=== PATIENT | female | born 1935 | race Caucasian/White ===

== ENCOUNTER 2018-04-19 13:12 | Emergency (ER) | payer MEDICARE, OTHER ==
[~2018-04-19] VITALS: Ht 152.4 cm; Wt 51.7 kg
--- OUTSIDE RECORDS SUMMARY | 2018-04-19 13:15 | XMS REPORT | Clinical Summary ---
Author Author [facility] Organization [facility] Address Unknown Phone Unavailable Care Team Providers Care Associate Spa Director Name Role Phone Natanael Lozano MD PCP Allergies No Known Allergies Medications End Date Status Medication Sig Dispensed Refills Start Date Active ADVAIR DISKUS 250-50 0 mcg/dose DISKUS 7 Active lisinopril Take 10 mg by 0 (PRINIVIL,ZESTRIL) 10 mg mouth. 6 tablet Active gabapentin (NEURONTIN) 0 300 mg capsule 7 Active zolpidem (AMBIEN) 5 MG Take 5 mg by 0 tablet mouth. 7 Active carvedilol (COREG) 12.5 Take 12.5 mg 0 MG tablet by mouth. 7 Active clopidogrel (PLAVIX) 75 TAKE ONE 0 mg tablet TABLET BY 7 MOUTH DAILY Active aspirin (ECOTRIN) 81 MG Take 1 tablet 0 enteric coated tablet by mouth. Active pravastatin (PRAVACHOL) 0 80 MG tablet 7 Active cholecalciferol, vitamin Take 1,000 0 D3, (VITAMIN D3) 1,000 Units by unit tablet mouth. Active calcium carbonate Take 600 mg 0 (OS-NENA) 600 mg calcium by mouth. (1,500 mg) tablet Active albuterol (PROAIR 0 HFA,PROVENTIL HFA,VENTOLIN HFA) 90 mcg/actuation inhaler Active lidocaine (XYLOCAINE) 5 % 0 ointment 7 Active ONETOUCH ULTRA TEST strip TEST BLOOD 2 test strips SUGAR QD 7 Active BECLOMETHASONE Inhale 2 0 DIPROPIONATE (QVAR INHL) (two) times a day. Active sitaGLIPtin-metformin Take by mouth 0 (JANUMET XR) 100-1,000 mg daily. tablet, ER multiphase 24 hr Active PSYLLIUM SEED, WITH Take by mouth 0 DEXTROSE, (FIBER ORAL) 2 (two) times a day. Active multivitamin with Take 1 tablet 0 minerals tablet by mouth daily. Active Lactobacillus acidophilus Take by mouth 0 (ACIDOPHILUS) capsule daily. Active Problems Problem Noted Date CLL (chronic lymphocytic leukemia) 11/11/2016 Social History Date Tobacco Use Types Packs/Day Years Used Former Smoker Alcohol Use Drinks/Week oz/Week Comments No Sex Assigned at Date Recorded Not on file Industry Job Start Date Occupation Not on file Not on file Not on file Travel End Travel History Travel Start No recent travel history available. Last Filed Vital Signs Not on file Plan of Treatment Health Maintenance Due Date Last Done Comments SHINGRIX VACCINE (1 of 2) 1986 ZOSTER VACCINE 1996 PNEUMOCOCCAL 2001 POLYSACCHARIDE VACCINE AGE 65 AND OVER PNEUMOCOCCAL-13 2001 INFLUENZA VACCINE 12/07/2017 12/22/2015 Results Not on fileafter 04/18/2017 Insurance Payer Benefit Subscriber ID Type Phone Address Plan / Group AETNA MEDICARE AETNA xxxxxxxx O MEDICARE HMO/PPO [id number] Advance Directives Patient has advance care planning documents on file. For more information, kendrick elliott contact: Petey Swanson [address] [place] [address]
--- OUTSIDE RECORDS SUMMARY | 2018-04-19 13:15 | XMS REPORT | Clinical Summary ---
Author Author [facility] [employer] [facility] Address Unknown Phone Unavailable Care Team Providers Care Associate Manager Affiliate Marketing Name Role Phone Natanael Lozano MD PCP Raghu Jackson 31 Unavailable Allergies No Known Allergies Medications End Date Status Medication Sig Dispensed Refills Start Date Active fluticasone-salmeterol Inhale 1 puff 0 (ADVAIR) 250-50 mcg/dose by mouth via diskus inhaler inhaler every 12 (twelve) hours. Active prasugrel (EFFIENT) 10 mg Take 1 tablet 30 tablet 0 Tab tablet (10 mg total) 6 by mouth daily. Active cholecalciferol (VITAMIN Take 1,000 0 D3) 1,000 unit tablet Units by mouth daily. Active calcium carbonate Take 600 mg 0 (OS-NENA) 600 mg (1,500 by mouth mg) Tab daily. Active multivitamin per tablet Take 1 tablet 0 by mouth daily. Active Problems Problem Noted Date PVD (peripheral vascular disease) with claudication 03/08/2016 S/P femoral-popliteal bypass surgery 03/08/2016 PVD (peripheral vascular disease) 03/26/2014 CLL (chronic lymphocytic leukemia) 03/26/2014 CKD (chronic kidney disease), stage 3 (moderate) 03/26/2014 Hypothyroid 03/26/2014 GERD (gastroesophageal reflux disease) 03/26/2014 Hypertension 03/26/2014 CAD (coronary artery disease) 03/26/2014 Social History Date Tobacco Use Types Packs/Day [...] Health Maintenance Due Date Last Done Comments INFLUENZA VACCINE 02/06/2018 Implants Device Identifier Shelf Expiration Date Model / Serial / Lot Implanted Type Area Manufactur er 03/26/2019 [id number] / [id number] / Grft Eptfe-Heparin Rng [id number] Graft/Patc Right: Leg WL GORE & [id number] - [id number] ASSC:MED Implanted: Qty: 1 on 03/08/2016 by Nicolasa Godfrey MD Explanted: 03/08/2016 [id number] / / [id number] Supera Peripheral Stent WESLEY Implanted: Qty: 1 on 05/27/2015 VASCULAR DEVICE 02/05/2017 [id number] / / [id number] Supera Peripheral Stent WESLEY Implanted: Qty: 1 on 05/27/2015 VASCULAR DEVICE Results Not on fileafter 04/18/2017 Insurance Payer Benefit Subscriber ID Type Phone Address Plan / Group AETNA - MEDICARE MGD CARE AETNA xxxxxxxx [phone] [address] [place] [address] HMO POS PPO Advance Directives Patient has advance care planning documents, and code status on file. For more i nformation, please contact: [facility] [address] [place] [address] Date Inactivated Comments Code Status Date Activated 03/16/2016 12:32 PM Full Code 03/12/2016 5:17 PM This code status was determined by: Patient 03/12/2016 5:17 PM Full Code 03/08/2016 6:52 AM This code status was determined by: Patient 02/27/2016 8:24 PM Full Code 02/27/2016 1:53 PM This code status was determined by: Patient 02/27/2016 1:53 PM Full Code 02/27/2016 9:02 AM This code status was determined by: Patient 05/28/2015 1:18 PM Full Code 05/27/2015 4:02 PM This code status was determined by: Patient
--- OUTSIDE RECORDS SUMMARY | 2018-04-19 13:15 | XMS REPORT | Summary of Care ---
Author Author [facility] Organization [facility] Address Unknown Phone Unavailable Encounter VENKAT Frias(STEPHENIE) [id number] Date(s): 03/28/16 - 03/28/16 [facility] [address] [place] [address]- Discharge Diagnosis: Finger sprain Discharge Diagnosis: Constipation Discharge Diagnosis: Proctitis Discharge Disposition: Home or Self Care Attending Physician: Felipe Montaño MD Vital Signs 1 2 3 Most recent to oldest [Reference Range]: 152.4 cm (03/28/16 9:55 AM) Height 99.1 DegF (03/28/16 4:45 PM) 97.6 DegF (03/28/16 9:55 AM) Temperature Oral [96.4-99.1 DegF] 125/44 mmHg (03/28/16 4:45 PM) 127/51 mmHg (03/28/16 3:30 PM) 132/51 mmHg (03/28/16 12:30 PM) Blood Pressure [90-140/60-90 mmHg] 18 BRMIN (03/28/16 4:45 PM) 20 BRMIN (03/28/16 3:30 PM) 20 BRMIN (03/28/16 12:30 PM) Respiratory Rate [14-20 BRMIN] 92 bpm (03/28/16 4:45 PM) 62 bpm (03/28/16 3:45 PM) 97 bpm (03/28/16 3:30 PM) Peripheral Pulse Rate [60-100 bpm] 49.091 kg (03/28/16 9:55 AM) Weight 21.14 m2 (03/28/16 9:55 AM) Body Mass Index Problem List Condition Effective Dates Status Health Status Informant Acquired Active hypothyroidism(Confi rmed) CLL (chronic Resolved lymphocytic leukemia)(Confirmed) COPD (chronic Resolved obstructive pulmonary disease)(Confirmed) CLL - Chronic Active lymphocytic leukemia(Confirmed) Compartment syndrome Active of leg(Confirmed) COPD(Confirmed) Active Decompressive Active fasciotomy(Confirmed ) 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 Allergies, Adverse Reactions, Alerts Substance Reaction Severity Status NKDA Active Medications ciprofloxacin 500 mg oral tablet 500 mg=1 tab, PO, Q12H, X 7 day, # 14 tab, 0 Refill(s), Pharmacy: [facility] [id number] Start Date: 03/28/16 Stop Date: 04/04/16 Status: Ordered Flagyl 500 mg oral tablet 500 mg=1 tab, PO, Q8H, X 7 day, # 21 tab, 0 Refill(s), Pharmacy: [facility] Start Date: 03/28/16 Stop Date: 04/04/16 Status: Ordered Fleet Mineral Oil Enema 133 mL, Route: NC, Dosing Weight 49.091, kg, ONCE, Start date: 03/28/16 10:21:00 BAND HEAD SAW OPERATOR, Stop date: 03/28/16 10:21:00 BAND HEAD SAW OPERATOR Start Date: 03/28/16 Stop Date: 03/28/16 Status: Completed morphine Sulfate 2 mg, Route: IVP, ONCE, Dosing Weight 49.091, kg, Priority: STAT, Start date: 10:21:00 BAND HEAD SAW OPERATOR, Stop date: 03/28/16 10:21:00 BAND HEAD SAW OPERATOR Start Date: 03/28/16 Stop Date: 03/28/16 Status: Completed ondansetron 4 mg, Route: IVP, ONCE, Dosing Weight 49.091, kg, Priority: STAT, Start date: 12:45:00 BAND HEAD SAW OPERATOR, Stop date: 03/28/16 12:45:00 BAND HEAD SAW OPERATOR Start Date: 03/28/16 Stop Date: 03/28/16 Status: Completed Saline Flush 0.9% 10 mL, Route: IVP, Drug Form: INJ, Dosing Weight 49.091, kg, PRN, PRN Line Flush , Start date: 03/28/16 12:45:00 BAND HEAD SAW OPERATOR, Duration: 30 day, Stop date: 04/27/16 12:44 :00 BAND HEAD SAW OPERATOR Notes: (Same as: BD Posiflush) Start Date: 03/28/16 Stop Date: 03/28/16 Status: Discontinued Sodium Chloride 0.9% (Bolus) IV 1,000 mL, 2,000 ml/hr, Infuse Over: 30 minutes, Route: IV, ONCE, Priority: STAT, Dosing Weight 49.091 kg, Start date: 03/28/16 12:45:00 BAND HEAD SAW OPERATOR, Duration: 1 doses or times, Stop date: 03/28/16 12:45:00 BAND HEAD SAW OPERATOR Start Date: 03/28/16 Stop Date: 03/28/16 Status: Completed Zofran 4 mg, Route: IVP, Drug form: INJ, ONCE, Dosing Weight 49.091, kg, Priority: STAT , Start date: 03/28/16 10:41:00 BAND HEAD SAW OPERATOR, Stop date: 03/28/16 10:41:00 BAND HEAD SAW OPERATOR Start Date: 03/28/16 Stop Date: 03/28/16 Status: Completed Results ELECTROLYTES Most recent to 1 oldest [Reference Range]: Sodium Lvl [135-145 142 mEq/L mEq/L] (03/28/16 12:59 PM) Potassium Lvl 4.1 mEq/L [3.5-5.1 mEq/L] (03/28/16 12:59 PM) Chloride Lvl [95-109 106 mEq/L mEq/L] (03/28/16 12:59 PM) CO2 [24-32 mEq/L] 23 mEq/L *LOW* (03/28/16 12:59 PM) AGAP [10.0-20.0 17.1 mEq/L mEq/L] (03/28/16 12:59 PM) CHEM PANEL Most recent to 1 oldest [Reference Range]: Creatinine Lvl 1.20 mg/dL [0.50-1.40 mg/dL] (03/28/16 12:59 PM) eGFR 43 mL/min/1.73m2 1 *NA* (03/28/16 12:59 PM) BUN [7-22 mg/dL] 23 mg/dL *HI* (03/28/16 12:59 PM) B/C Ratio [6-25] 19 (03/28/16 12:59 PM) Glucose Lvl [70-99 111 mg/dL mg/dL] *HI* (03/28/16 12:59 PM) Total Protein 7.1 g/dL [6.4-8.4 g/dL] (03/28/16 12:59 PM) Albumin Lvl [3.5-5.0 3.6 g/dL g/dL] (03/28/16 12:59 PM) Globulin [2.7-4.2 3.5 g/dL g/dL] (03/28/16 12:59 PM) A/G Ratio [0.7-1.6] 1.0 (03/28/16 12:59 PM) Calcium Lvl 8.8 mg/dL [8.5-10.5 mg/dL] (03/28/16 12:59 PM) ALT [0-65 unit/L] 23 unit/L (03/28/16 12:59 PM) AST [0-37 unit/L] 17 unit/L (03/28/16 12:59 PM) Alk Phos [39-136 73 unit/L unit/L] (03/28/16 12:59 PM) Bili Total [0.2-1.3 0.3 mg/dL mg/dL] (03/28/16 12:59 PM) Lipase Lvl [73-393 289 unit/L unit/L] (03/28/16 12:59 PM) 1Result Comment: The eGFR is calculated using the CKD-EPI formula. In most young, healthy individuals the eGFR will be >90 mL/min/1.73m2. The eGFR declines with age. An eGFR of 60-89 may be normal in some populations, particularly the elderly, for whom the CKD-EPI formula has not been extensively validated. Use of the eGFR is not recommended in the following populations: Individuals with unstable creatinine concentrations, including patients and those with serious co-morbid conditions. Patients with extremes in muscle mass or diet. The data above are obtained from the National Kidney Disease Education Program ( NKDEP) which additionally recommends that when the eGFR is used in patients with extremes of body mass index for purposes of drug dosing, the eGFR should be mul tiplied by the estimated BMI. HEMATOLOGY Most recent to 1 oldest [Reference Range]: WBC [3.7-10.4 K/CMM] 22.1 K/CMM *HI* (03/28/16 12:59 PM) RBC [4.20-5.40 4.48 M/CMM M/CMM] (03/28/16 12:59 PM) Hgb [12.0-16.0 g/dL] 12.9 g/dL (03/28/16 12:59 PM) Hct [36.0-48.0 %] 39.3 % (03/28/16 12:59 PM) MCV [80.0-98.0 fL] 87.7 fL (03/28/16 12:59 PM) MCH [27.0-31.0 pg] 28.9 pg (03/28/16:59 PM) MCHC [32.0-36.0 32.9 g/dL g/dL] (03/28/16 12:59 PM) RDW [11.5-14.5 %] 14.2 % (03/28/16 12:59 PM) Platelet [133-450 422 K/CMM K/CMM] (03/28/16 12:59 PM) MPV [7.4-10.4 fL] 7.8 fL (03/28/16 12:59 PM) Segs [45.0-75.0 %] 64.4 % (03/28/16 12:59 PM) Lymphocytes 31.7 % [20.0-40.0 %] (03/28/16 12:59 PM) Monocytes [2.0-12.0 3.4 % %] (03/28/16 12:59 PM) Eosinophils [0.0-4.0 0.3 % %] (03/28/16 12:59 PM) Basophils [0.0-1.0 0.2 % %] (03/28/16 12:59 PM) Segs-Bands # 14.2 K/CMM [1.5-8.1 K/CMM] *HI* (03/28/16 12:59 PM) Lymphocytes # 7.0 K/CMM [1.0-5.5 K/CMM] *HI* (03/28/16 12:59 PM) Monocytes # [0.0-0.8 0.8 K/CMM K/CMM] (03/28/16 12:59 PM) Eosinophils # 0.1 K/CMM [0.0-0.5 K/CMM] (03/28/16 12:59 PM) PT [12.0-14.7 13.0 seconds seconds] (03/28/16 12:59 PM) INR [0.85-1.17] 0.96 (03/28/16 12:59 PM) PTT [22.9-35.8 28.7 seconds seconds] (03/28/16 12:59 PM) Immunizations Given and Recorded Vaccine Date Status Refusal Reason pneumococcal 23-valent vaccine 01/18/12 Given Procedures Procedure Date Related Diagnosis Body Site Lower extremity surgical repair1 05/15/15 AKA - Above knee amputation 1R-leg Social History Social History Type Response Alcohol Never Smoking Status Never smoker; Ready to change: No; Concerns about tobacco use in household: No; Exposure to Tobacco Smoke None; Cigarette Smoking Last 365 Days No; Reg Smoking Cessation Counseling No Assessment and Plan No data available for this section
--- OUTSIDE RECORDS SUMMARY | 2018-04-19 13:15 | XMS REPORT | Summary of Care ---
Author Author [facility] Organization [facility] Address Unknown Phone Unavailable Encounter VENKAT Frias(STEPHENIE) [id number] Date(s): 10/18/16 - 10/18/16 [facility] [place] [facility] [address] [place] [phone] Discharge Disposition: Home or Self Care Attending Physician: Natanael Lozano MD Vital Signs No data available for this section Problem List Condition Effective Dates Status Health [...] Substance Reaction Severity Status NKDA Active Medications No data available for this section Results No data available for this section Immunizations Given and Recorded Vaccine Date Status [...]
[2018-04-19] MEDS ORDERED: ACETAMINOPHEN 325 MG TAB PO STA (13:57)
[2018-04-19 15:37] VITALS: BP 136/66
== END 2018-04-19 15:40 | disposition home or self-care (01) ==
LOC: FSED 13:12
DX: M54.5 Low back pain (principal); M54.2 Cervicalgia; S39.012A Strain of muscle, fascia and tendon of lower back, initial encounter; S16.1XXA Strain of muscle, fascia and tendon at neck level, initial encounter; E11.9 Type 2 diabetes mellitus without complications; Z87.891 Personal history of nicotine dependence
CPT/HCPCS: 80048; 81003; 99283

== ENCOUNTER 2019-12-09 22:00 | Emergency (ER) | payer MEDICARE ==
[~2019-12-09] VITALS: Ht 152.4 cm; Wt 51.7 kg
--- OUTSIDE RECORDS SUMMARY | 2019-12-09 23:47 | XMS REPORT | Continuity of Care Document ---
Author Author [facility] t Organization [facility] Address [facility] [place] [address] Phone Unavailable Care Team Providers Care Inside Sales Account Representative Name Role Phone LM KELLEY, Michelle SYKES PCP Aditya KELLEY, Indira Urrutia Attphys Jaxon Sky MD Attphys Michelle Lozano Attphys Juanito Montaño Attphys Payers Payer Name Policy Type Policy Number Effective Date Expiration Date S philipp [employer] MED[employer]AREAETNA MEDICARE HMO/PPO [id number] HMO xxxxxxxx 2015 00:00:00 [place] Sky Aetna Ppo [id number] 2015 00:00:00 [facility] Problems Condition Name Condition Details Condition Category Status Onset Date Resolution Date Last Treatment Date Treating Clinician Comments Source CONSTIPATION CONS TIPATION Active 03/28/2016 [facility] Active 2016-03-28 00:00:00 2016-12-01 11:33:00 Iban Preciado PVD (peripheral vascular disease) with claudication PV D (peripheral vascular disease) with claudication Disease Active 2016-03-08 00:00:00 [facility] S/P femoral-popliteal bypass surgery S/P femoral-popliteal b ypass surgery Disease Active 2016-03-08 00:00:00 [facility] PVD (peripheral vascular disease) PVD (peripheral vascular disea se) Disease Active 2014-03-26 00:00:00 [facility] CLL (chronic lymphocytic leukemia) CLL (chronic lymphocytic leuk emia) Disease Active 2014-03-26 00:00:00 [facility] CKD (chronic kidney disease), stage 3 (moderate) CKD ( chronic kidney disease), stage 3 (moderate) Disease Active 2014-03-26 00:00:00 [facility] Hypothyroid Hypothyroid Disease Active 2014-03-26 00:00:00 [facility] GERD (gastroesophageal reflux disease) GERD (gastroesophagea l reflux disease) Disease Active 2014-03-26 00:00:00 [facility] Hypertension Hypertension Disease Active 2014-03-26 00:00:00 [facility] CAD (coronary artery disease) CAD (coronary artery disease) Disease Active 2014-03-26 00:00:00 [facility] Chronic obstructive lung disease (disorder) Chronic obstructive lung disease (disorder) Resolved Problem 10/21/2016 [facility] Problem Resolved 2016-10-21 02:56:13 [facility] Acquired hypothyroidism (disorder) Acquired hypothyroidism (disorder) Active Problem 10/21/2016 [facility] Problem Active 2016-10-21 02:56:13 [facility] Compartment syndrome of lower limb (disorder) Compartment syndrome of lower limb (disorder) Active Problem 10/21/2016 ABIDA [facility] Problem Active 2016-10-21 02:56:1 3 [facility] Decompressive fasciotomy (procedure) Decompressive fasciotomy (procedure) Active Problem 10/21/2016 [facility] Problem Active 2016-10-21 02:56:13 [facility] Deep venous thrombosis of lower extremity (disorder) Deep venous thrombosis of lower extremity (disorder) Active Problem 10/21/2016 [facility] Problem Active 2016-10-21 02:56:13 [facility] Methicillin resistant Staphylococcus aureus (organism) Methicillin resistant Staphylococcus aureus (organism) Active Problem 10/21/2016 Problem added by Discern Expert. [facility] Problem A ctive 2016-10-21 02:56:13 [facility] Renal failure syndrome (disorder) Renal failure syndrome (disorder) Active Problem 10/21/2016 MERVIN Whitehead [facility] Problem Active 2016-10-21 02:56:13 [facility] Disease of thyroid gland (disorder) Disease of thyroid gland (disorder) Active Problem 10/21/2016 MERVIN [facility] Problem Active 2016-10-21 02:56:13 Artemio Preciado Discharge Diagnosis: Finger sprain Discharge Diagnosis: Finger sprain 03/28/2016 03/31/2016 [facility] Problem 2016-03-28 06:00:00 2016-03-31 01:27:57 2016-03-31 01:27:57 [facility] Discharge Diagnosis: Constipation Discharge Diagnosis: Constipation 03/28/2016 03/31/2016 [facility] Problem 2 06:00:00 2016-03-31 01:27:57 2016-03-31 01:27:57 [facility] Discharge Diagnosis: Proctitis Discharge Diagnosis: Proctitis 03/28/2016 03/31/2016 [facility] Problem 2015 06:00:00 2016-03-31 01:27:57 2016-03-31 01:27:57 [facility] Allergies, Adverse Reactions, Alerts This patient has no known allergies or adverse reactions. Social History Social Habit Start Date Stop Date Quantity Comments Source Sex Assigned At [facility] Alcohol intake 2016-11-11 00:00:00 2016-11-11 00:00:00 Current non-drinker of alcohol (finding) Petey Swanson Social History 2015-11-06 16:41:17 2015-11-06 [facility]:41:17 [facility] Sm[facility] Status Start Date Stop Date Source Former smoker 2016-03-25 00:00:00 2016-03-25 00:00:00 [facility] Medications Ordered Medication Name Filled Medication Name Start Date Stop Da te Current Medication? Ordering Clinician Indication Dosage Frequency Signature (SIG) Comments Components Source Lactobacillus acidophilus (ACIDOPHILUS) capsule 2016-11-11 09:47 :07 Yes Take by mouth daily. Petey Swanson BECLOMETHASONE DIPROPIONATE (QVAR INHL) 2016-11-11 09:47:06 Yes Q.5D Inhale 2 (two) times a day. Petey crane sitaGLIPtin-metformin (JANUMET XR) 100-1,000 mg tablet, ER m nithyase 24 hr 2016-11-11 09:47:06 Yes Take by mouth maggie yNithya Petey Swanson PSYLLIUM SEED, WITH DEXTROSE, (FIBER ORAL) 2016-11-11 09:47:06 Yes Q.5D Take by mouth 2 (two) times a day. Petey Swanson multivitamin with minerals tablet 2016-11-11 09:47:06 Yes 1{tbl} QD Take 1 tablet by mouth daily. Petey Gurrola st aspirin (ECOTRIN) 81 MG enteric coated tablet 2016-11-11 09:43:3 0 Yes 1{tbl} Take 1 tablet by mouth. Nicole Swanson cholecalciferol, vitamin D3, (VITAMIN D3) 1,000 unit tablet 2016-11-11 09:43:30 Yes 1000U Take 1,000 Units by mouth. Petey Swanson calcium carbonate (OS-NENA) 600 mg calcium (1,500 mg) tablet 2016-11-11 09:43:30 Yes 600mg Take 600 mg by mouth. Petey Swanson albuterol (PROAIR HFA,PROVENTIL HFA,VENTOLIN HFA) 90 mcg/act uation inhaler 2016-11-11 09:43:30 Yes Petey Swanson lidocaine (XYLOCAINE) 5 % ointment 2016-10-28 00:00:00 Yes Petey Swanson ADVAIR DISKUS 250-50 mcg/dose DISKUS 2016-10-22 00:00:00 Yes Petey Swanson gabapentin (NEURONTIN) 300 mg capsule 2016-09-30 00:00:00 Yes Petey Swanson ONETOUCH ULTRA TEST strip test strips 2016-09-16 00:00:00 Y es TEST BLOOD SUGAR QD Petey Swanson pravastatin (PRAVACHOL) 80 MG tablet 2016-09-15 00:00:00 Yes Petey Swanson clopidogrel (PLAVIX) 75 mg tablet 2016-07-16 00:00:00 Yes TAKE ONE TABLET BY MOUTH DAILY Petey Swanson carvedilol (COREG) 12.5 MG tablet 2016-06-23 00:00:00 Yes 12.5mg Take 12.5 mg by mouth. Petey Swanson zolpidem (AMBIEN) 5 MG tablet 2016-06-10 00:00:00 Yes 5mg Take 5 mg by mouth. Petey Swanson Metronidazole 500 MG Oral Tablet [Flagyl] 2016-03-28 21:47:00 Yes 500 mg = 1 tab, PO, Q8H, X 7 day, # 21 tab, 0 Refill(s), Pharmacy: [address] ciprofloxacin 500 mg oral tablet 2016-03-28 21:47:00 Yes 500 mg = 1 tab, PO, Q12H, X 7 day, # 14 tab, 0 Refill(s), Pharmacy: [address] Ondansetron 2016-03-28 18:45:00 No 4 mg, Route: IVP, ONCE, Dosing Weight 49.091, kg, Priority: STAT, Start date: 03/28/16 12:45:00 [employer] BUSINESS ADMINISTRATOR, Stop date: 03/28/16 12:45:00 [employer]UR[employer] BUSINESS ADMINISTRATOR [facility] Sodium Chloride 0.154 MEQ/ML Injectable Solution 2016-03-28 18:4 5:00 No 1,000 mL, 2,000 ml/hr, Infus e Over: 30 minutes, Route: IV, ONCE, Priority: STAT, Dosing Weight 49.091 kg, Start date: 03/28/16 12:45:00 [employer] BUSINESS ADMINISTRATOR, Duration: 1 doses or times, Stop date: 03/28/16 12:45:00 [employer]UR[employer] BUSINESS ADMINISTRATOR [facility] Saline Flush 0.9% 2016-03-28 18:45:00 No Notes: (Same as: BD Posiflush) [facility] Zofran 2016-03-28 16:41:00 No 4 mg, Route: IVP, Drug form: INJ, ONCE, Dosing Weight 49.091, kg, Priority: STAT, Start date: 03/28/16 10:41:00 [employer] ADMINISTRATOR, Stop date: 03/28/16 10:41:00 CHURCH BUSINESS ADMINISTRATOR [facility] Morphine 2016-03-28 16:21:00 No 2 mg, Route: IVP, ONCE, Dosing Weight 49.091, kg, Priority: STAT, Start date: 03/28/16 10:21:00 [employer]UR[employer] BUSINESS ADMINISTRATOR, Stop date: 03/28/16 10:21:00 CHUR[employer] BUSINESS ADMINISTRATOR [facility] Fleet Mineral Oil Enema 2016-03-28 16:21:00 No 133 mL, Route: CT, Dosing Weight 49.091, kg, ONCE, Start date: 03/28/16 10:21:00 [employer] BUSINESS ADMINISTRATOR, Stop date: 11/20/16 10:21:00 [facility] cholecalciferol (VITAMIN D3) 1,000 unit tablet 2016-03-25 10:22: 24 Yes 1000U QD Take 1,000 Units by mouth daily. [facility] calcium carbonate (OS-NENA) 600 mg (1,500 mg) Tab 2016-03-25 10:22:24 Yes 600mg QD Take 600 mg by mouth daily. [facility] multivitamin per tablet 2016-03-25 10:22:24 Yes 1{tbl} QD Take 1 tablet by mouth daily. [facility] lisinopril (PRINIVIL,ZESTRIL) 10 mg tablet 2016-03-16 00:00:00 Yes 10mg Take 10 mg by mouth. Petey kern prasugrel (EFFIENT) 10 mg Tab tablet 2016-03-16 00:00:00 Ye s 10mg QD Take 1 tablet (10 mg total) by mouth daily. [facility] fluticasone-salmeterol (ADVAIR) 250-50 mcg/dose diskus inhal er 2016-02-27 09:31:16 Yes 1{puff} Inhale 1 p uff by mouth via inhaler every 12 (twelve) hours. [facility] Vital Signs Vital Name Observation Time Observation Value Comments Source Respitory Rate 2016-03-28 22:45:00 [facility] Systolic (mm Hg) 2016-03-28 22:45:00 Juan rial [facility] Diastolic (mm Hg) 2016-03-28 22:45:00 [facility] Temperature Oral (F) 2016-03-28 22:45:00 99.1 F [facility] Heart Rate 2016-03-28 22:45:00 [facility] Heart Rate 2016-03-28 21:45:00 [facility] Heart Rate 2016-03-28 21:30:00 [facility] Respitory Rate 2016-03-28 21:30:00 [facility] Systolic (mm Hg) 2016-03-28 21:30:00 Juan rial [facility] Diastolic (mm Hg) 2016-03-28 21:30:00 [facility] Systolic (mm Hg) 2016-03-28 18:30:00 Juan [facility] [place] Diastolic (mm Hg) 2016-03-28 18:30:00 [facility] [place] Respitory Rate 2016-03-28 18:30:00 Abhi Messer Height 2016-03-28 15:55:00 152.4 cm Iban Preciado BMI Calculated 2016-03-28 15:55:00 Memsuhas Messer Temperature Oral (F) 2016-03-28 15:55:00 97.6 F Iban Preciado Weight 2016-03-28 15:55:00 [facility] Procedures Procedure Date / Time Performed Performing Clinician [facility] e Lower extremity surgical repair<sup>1</sup> 2015-05-15 06:00:00 Iban Hodgesann AKA - Above knee amputation Juan [facility] Plan of Care Planned Activity Planned Date Details Comments Source Future Scheduled Test 2019-12-08 00:00:00 INFLUENZA VACCINE [code = INFLUENZA VACCINE] [facility] Future Scheduled Test 2001 00:00:00 65+ PNEUMOCOCCAL V ACCINE (1 of 2 - PCV13) [code = 65+ PNEUMOCOCCAL VACCINE (1 of 2 - PCV13)] [facility] Future Scheduled Test 1986 00:00:00 SHINGLES VACCINES (#1) [code = SHINGLES VACCINES (#1)] [facility] Encounters Start Date/Time End Date/Time Encounter Type Admission Type [facility] Care Department Encounter ID Source 2019-01-29 13:55:26 2019-01-30 08:06:47 Office Visit Renetta staleyromulo Jose Coates [facility] [id number] 2018-04-19 13:12:00 2018-04-19 15:40:00 Departed Emergency Room [facility] [id number] [facility] 2016-10-18 09:56:00 2016-10-18 23:59:00 [id number] 2016-03-28 09:42:00 2016-03-28 17:31:00 Outpatient Felipe Davidson [facility] [id number] Results Test Description Test Time Test Comments Results Result Comments Source CHEM PANEL 2016-03-28 18:59:00 289 [facility] CHEM PANEL 2016-03-28 18:59:00 3.5 [facility] CHEM PANEL 2016-03-28 18:59:00 1.0 [facility] [place] CHEM PANEL 2016-03-28 18:59:00 19 [facility] CHEM PANEL 2016-03-28 18:59:00 17.1 [facility] CHEM PANEL 2016-03-28 18:59:00 43 [facility] CHEM PANEL 2016-03-28 18:59:00 8.8 [facility] [place] CHEM PANEL 2016-03-28 18:59:00 23 [facility] [place] CHEM PANEL 2016-03-28 18:59:00 23 [facility] [place] CHEM PANEL 2016-03-28 18:59:00 3.6 [facility] CHEM PANEL 2016-03-28 18:59:00 7.1 [facility] CHEM PANEL 2016-03-28 18:59:00 73 [facility] [place] CHEM PANEL 2016-03-28 18:59:00 17 [facility] [place] CHEM PANEL 2016-03-28 18:59:00 0.3 [facility] CHEM PANEL 2016-03-28 18:59:00 1.20 [facility] [place] CHEM PANEL 2016-03-28 18:59:00 23 [facility] [place] CHEM PANEL 2016-03-28 18:59:00 111 [facility] [place] CHEM PANEL 2016-03-28 18:59:00 106 [facility] CHEM PANEL 2016-03-28 18:59:00 4.1 [facility] CHEM PANEL 2016-03-28 18:59:00 142 [facility] [place] HEMATOLOGY 2016-03-28 18:59:00 3.4 [facility] [place] HEMATOLOGY 2016-03-28 18:59:00 31.7 [facility] HEMATOLOGY 2016-03-28 18:59:00 64.4 [facility] HEMATOLOGY 2016-03-28 18:59:00 7.0 [facility] [place] HEMATOLOGY 2016-03-28 18:59:00 0.8 [facility] [place] HEMATOLOGY 2016-03-28 18:59:00 0.1 [facility] [place] HEMATOLOGY 2016-03-28 18:59:00 0.3 [facility] HEMATOLOGY 2016-03-28 18:59:00 14.2 [facility] HEMATOLOGY 2016-03-28 18:59:00 0.2 [facility] HEMATOLOGY 2016-03-28 18:59:00 4.48 [facility] [place] HEMATOLOGY 2016-03-28 18:59:00 22.1 [facility] [place] HEMATOLOGY 2016-03-28 18:59:00 32.9 [facility] HEMATOLOGY 2016-03-28 18:59:00 39.3 [facility] HEMATOLOGY 2016-03-28 18:59:00 12.9 [facility] [place] HEMATOLOGY 2016-03-28 18:59:00 Test Item MCH (test code = MCH) 28.9 pg 27.0-31.0 [id number] [facility] 2016-03-28 18:59:53673Csudgayt [id number] 18:59:0014.2[facility] [id number] 18:59:007.8[facility] [id number] 18:59:00* Test Item Value Reference Range Interpretation Comments PTT (test code = PTT) 28.7 s 22.9-35.8 [facility] [id number] 18:59:00* Test Item Value Reference Range Interpretation Comments PT (test code = PT) 13.0 s 12.0-14.7 [facility] [id number] 18:59:000.96[facility]
--- OUTSIDE RECORDS SUMMARY | 2019-12-09 23:47 | XMS REPORT | Clinical Summary ---
Author Author [facility] Organization [facility] Address Unknown Phone Unavailable Care Team Providers Care Plumbing Inspector Name Role Phone Natanael Lozano MD PCP Allergies No Known Allergies Medications End Date Status Medication Sig Dispensed Refills Start Date Active ADVAIR DISKUS 250-50 0 mcg/dose DISKUS 7 Active lisinopril Take 10 mg by 0 (PRINIVIL,ZESTRIL) 10 mg mouth. 6 tablet Active gabapentin (NEURONTIN) 0 300 mg capsule 7 Active zolpidem (AMBIEN) 5 MG Take 5 mg by 0 06/10/ 01 tablet mouth. 7 Active carvedilol (COREG) 12.5 [...] ONETOUCH ULTRA TEST strip TEST BLOOD 2 09/06 test strips SUGAR QD 7 Active BECLOMETHASONE [...] Noted Date CLL (chronic lymphocytic leukemia) 11/11/2016 Encounters Care Team Description Date Type Specialty Renan Burgess MD CLL (chronic lymphocytic leukemia) (HCC) (Primary Dx) 04/10/2019 Office Visit Hematology Renan Burgess MD CLL (chronic lymphocytic leukemia) (HCC) (Primary Dx) 04/09/2019 Orders Only Hematology after 12/08/2018 Social History Date Tobacco Use Types Packs/Day Years Used Former Smoker Drinks/Week oz/Week Comments Alcohol Use No Sex Assigned at Date Recorded Not on file Industry Job Start Date Occupation Not on file Not on file Not on file Travel End Travel History Travel Start No recent travel history available. Last Filed Vital Signs Not on file Plan of Treatment Health Maintenance Due Date Last Done Comments SHINGLES VACCINES (#1) 1986 65+ PNEUMOCOCCAL VACCINE 2001 (1 of 2 - PCV13) INFLUENZA VACCINE 12/08/2019 01/12/2018, 12/22/2015 Results Not on fileafter 12/08/2018 Insurance Type Payer Benefit Subscriber ID Effective Phone Address Plan / Dates Group HMO AETNA MEDICARE AETNA xxxxxxxx [id number] MEDICARE resent HMO/PPO [facility] [id number] Advance Directives For more information, please contact: [phone] Patient Mat Cutter Explanation Type Date Recorded Advance Directives, Living Will and 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
--- OUTSIDE RECORDS SUMMARY | 2019-12-09 23:47 | XMS REPORT | Continuity of Care Document ---
Author Author PicovicoCARLEEN Picovico Address Unknown Phone Unavailable Care Team Providers Care Road Machine Operator Name Role Phone AdXpose Information [facility]Out Unavailable Un available Problems Problem Status Onset Date Classification Date Reported Comments Source Discharge Diagnosis: Finger sprain 03/28/2016 03/31/2016 [facility] Discharge Diagnosis: Constipation 03/28/2016 03/31/2016 [facility] Discharge Diagnosis: Proctitis 03/28/2016 03/31/2016 [facility] CONSTIPATION Active 03/28/2016 [facility] Acquired hypothyroidism (disorder) Active Problem [facility] [place] Chronic lymphoid leukemia, disease (disorder) [facility] Chronic obstructive lung disease (disorder) Resolved Problem 10/21[facility] Compartment syndrome of lower limb (disorder) Active Problem 10/21[facility]) [facility] of lower extremity (disorder) Active [facility] 10[facility]21[facility] Gastroesophageal reflux disease (disorder) Active Problem 10/21[facility] Hypertensive disorder, systemic arterial (disorder) Active [facility] 10/21[facility] Methicillin resistant Staphylococcus aureus (organism) Active Problem 10/21/2016 Problem added by Deyanira anderson Expert. [facility] Renal failure syndrome (disorder) [facility] ([facility] Active Problem [facility] [place] Medications Medication Details Route Status Patient Instructions Ordering Provider Order Date Source Metronidazole 500 MG Oral Tablet [Flagyl] 500 mg = 1 tab, PO, Q8H, X 7 day, # 21 tab, 0 Refill(s), Pharmacy: [facility] [id number] Active 03/28/2016 [facility] ciprofloxacin 500 mg oral tablet 500 mg = 1 tab, PO, Q12H, X 7 day, # 14 tab, 0 Refill(s), Pharmacy: [place] [id number] Active 03/28/2016 [facility] Ondansetron 4 mg, Route: IVP, ONCE, Dosing Weight 49.091, kg, Priority: STAT, Start date: 03/28/16 12:45:00 PRESCHOOL ASSISTANT, Stop date: 03/28/16 12:45:00 PRESCHOOL ASSISTANT Inactive 03/28/2016 [facility] Sodium Chloride 0.154 MEQ/ML Injectable Solution 1,000 mL, 2,000 ml/hr, Infuse Over: 30 minutes, Route: IV, ONCE, Priority: STAT, Dosing Weight 49.091 kg, Start date: 03/28/16 12:45:00 PRESCHOOL ASSISTANT, Duration: 1 doses or times, Stop date: 03/28/16 12:45:00 PRESCHOOL ASSISTANT Inactive 03/28/2016 [facility] Saline Flush 0.9% Notes: (Same as: BD Posiflush) Inactive 03/28/2016 [facility] Zofran 4 mg, Route: IVP, Drug form: INJ, ONCE, Dosing Weight 49.091, kg, Priority: STAT, Start date: 03/28/16 10:41:00 PRESCHOOL ASSISTANT, Stop date: 03/28/16 10:41:00 PRESCHOOL ASSISTANT Inactiv e 03/28/2016 [facility] Morphine 2 mg, Route: IVP, ONC E, Dosing Weight 49.091, kg, Priority: STAT, Start date: 03/28/16 10:21:00 PRESCHOOL ASSISTANT, Stop date: 03/28/16 10:21:00 PRESCHOOL ASSISTANT Inactive 03/28/2016 [facility] Fleet Mineral Oil Enema 133 mL , Route: NM, Dosing Weight 49.091, kg, ONCE, Start date: 03/28/16 10:21:00 PRESCHOOL ASSISTANT, Stop date: 03/28/16 10:21:00 PRESCHOOL ASSISTANT Inactive 03/28/2016 [facility] Allergies, Adverse Reactions, Alerts No Known Medication Allergies Immunizations Immunization Date Given Site Status Last Updated Comments Source pneumococcal 23-valent vaccine 01/19/2012 [facility] deltoid [facility] Results Order Name Results Value Reference Range Date Interpretation Comments Source CHEM PANEL Lipase Lvl 289 64 - 393 03/28/2016 [facility] Globulin 3.5 2.7 - 4.2 03/28/2016 [facility]M PANEL A/G Ratio 1.0 0.7 - 1.6 03/28/2016 [facility] CHEM PANEL B/C Ratio 19 6 - 25 03/28/2016 [facility] CHEM PANEL AGAP 17.1 10.0 - 20.0 03/28/2016 [facility] CHEM PANEL eGFR 43 03/28/2016 Result Comment: The eGFR is calculated using the [...] from the National Kidney Disease Education Program (NKDEP) which additionally recommends that when the eGFR is used in patients with extremes of body mass index for purposes of drug dosing, the eGFR should be multiplied by the estimated BMI. [facility] CHEM PANEL Calcium Lvl 8.8 8.5 - 10.5 03/28/2016 [facility] CHEM PANEL CO2 23 24 - 32 03/28/2016 [facility] CHEM PANEL ALT 23 0 - 65 03/28/2016 [facility] CHEM PANEL Albumin Lvl 3.6 3.5 - 5.0 03/28/2016 [facility] CHEM PANEL Total Protein 7.1 6.4 - 8.4 03/28/2016 [facility] CHEM PANEL Alk Phos 73 39 - 136 03/28/2016 [facility] CHEM PANEL AST 17 0 - 37 03/28/2016 [facility] CHEM PANEL Bili Total 0.3 0.2 - 1.3 03/28/2016 [facility] CHEM PANEL Creatinine Lvl 1.20 0.50 - 1.40 03/28/2016 [facility] CHEM PANEL BUN 23 7 - 22 03/28/2016 [facility] CHEM PANEL Glucose Lvl 111 70 - 99 03/28/2016 [facility] CHEM PANEL Chloride Lvl 106 95 - 109 03/28/2016 [facility] CHEM PANEL Potassium Lvl 4.1 3.5 - 5.1 03/28/2016 [facility] CHEM PANEL Sodium Lvl 142 135 - 145 03/28/2016 [facility] HEMATOLOGY Monocytes 3.4 2.0 - 12.0 03/28/2016 [facility] HEMATOLOGY Lymphocytes 31.7 20.0 - 40.0 03/28/2016 [facility] HEMATOLOGY Segs 64.4 45.0 - 75.0 03/28/2016 [facility] HEMATOLOGY Lymphocytes # 7.0 1.0 - 5.5 03/28/2016 [facility] HEMATOLOGY Monocytes # 0.8 0.0 - 0.8 03/28/2016 [facility] HEMATOLOGY Eosinophils # 0.1 0.0 - 0.5 03/28/2016 [facility] HEMATOLOGY Eosinophils 0.3 0.0 - 4.0 03/28/2016 [facility] HEMATOLOGY Segs-Bands # 14.2 1.5 - 8.1 03/28/2016 [facility] HEMATOLOGY Basophils 0.2 0.0 - 1.0 03/28/2016 [facility] HEMATOLOGY RBC 4.48 4.20 - 5.40 03/28/2016 [facility] HEMATOLOGY WBC 22.1 3.7 - 10.4 03/28/2016 [facility] HEMATOLOGY MCHC 32.9 32.0 - 36.0 03/28/2016 [facility] HEMATOLOGY Hct 39.3 36.0 - 48.0 03/28/2016 [facility] HEMATOLOGY Hgb 12.9 12.0 - 16.0 03/28/2016 [facility] HEMATOLOGY MCH 28.9 27.0 - 31.0 03/28/2016 [facility] HEMATOLOGY MCV 87.7 80.0 - 98.0 03/28/2016 [facility] HEMATOLOGY Platelet 422 133 - 450 03/28/2016 [facility] HEMATOLOGY RDW 14.2 11.5 - 14.5 03/28/2016 [facility] HEMATOLOGY MPV 7.8 7.4 - 10.4 03/28/2016 [facility] HEMATOLOGY PTT 28.7 22.9 - 35.8 03/28/2016 [facility] HEMATOLOGY PT 13.0 12.0 - 14.7 03/28/2016 [facility] HEMATOLOGY INR 0.96 0.85 - 1.17 03/28/2016 [facility] Pathology Reports No Data Provided for This Section Diagnostic Reports Report Value Date Source Chest 2 views DX EXAM: Chest 2 views DX HISTORY: Z00.00 Encounter for general adult medical examination without abnormal findings - copd COMPARISON: 2011 The heart size is normal and the lungs are clear. There is no pleural effusion or pneumothorax. Stable right upper lobe calcified granuloma. No gross skeletal abnormality. IMPRESSION: No acute abnormality. 10/18/2016 [facility] [place] [facility] Abdomen/Pelvis IV contrast only CT Clinical Indication: Rectal pain since this morning; Comparison: CT abdomen and pelvis 01/16/2012 TECHNIQUE: Sequential trans-axial images were obtained with a multi-detector helical CT after administration of iodinated contrast. Coronal and sagittal reconstructions were obtained. 75 mL of Visipaque contrast material was used for the exam. No oral contrast was used for the exam. CT Radiation Dose DLP 1441 mGy-cm FINDINGS: VISUALIZED LUNG BASES: Unremarkable. ABDOMINAL SOLID ORGANS: The contrast-enhanced images of the liver, spleen, pancreas, gallbladder, adrenals and kidneys are normal. The extrahepatic duct/ common bile duct appears unremarkable. Costophrenic granulomata in the spleen and liver. STOMACH AND BOWEL: The stomach is unremarkable. No small or large bowel dilatation. Normal appendix. Mild diverticulosis. Mild rectal wall thickening and adjacent stranding PERITONEUM AND RETROPERITONEUM: There is no lymphadenopathy. There is no pneumoperitoneum. There is no ascites. The retroperitoneal region appears unremarkable. VASCULAR STRUCTURES: Dense atherosclerotic calcification scattered soft plaque in the abdominal aorta and iliac arteries. Calcifications of the proximal renal arteries. The mesenteric arteries are widely patent. The inferior vena cava appears normal. The renal veins, mesenteric veins and portal vein appear unremarkable. Left SFA stent partially visualized. BLADDER: The bladder appears unremarkable. BONES AND SOFT TISSUES: There are no suspicious osseous lesions. No acute osseous abnormalities. Lipoma in the proximal quadriceps musculature. Mild anterolisthesis of L4 on L5. Scattered degenerative changes in the lumbar spine. IMPRESSION: 1. Mild rectal wall thickening and adjac ent stranding, possibly indicative of proctitis. 2. Mild diverticulosis without diverticu litis. 3. Atherosclerotic disease of the aorta and iliac arteries. SL: RY 03/28/2016 [facility] Hand 3 views DX Study: Right h and, 3 views Clinical Indication: Right hand pain post injury Comparison: None FINDINGS: Multiple views the right hand show diffuse bony demineralization. No acute bony fracture or joint dislocation is seen. Severe osteoarthritic changes throughout the PIP and DIP joints of the hand are seen. Soft tissues are unremarkable. 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 SL: [id number] 03/28/2016 [facility] Abdomen AP DX Study: Abdomen, 2 views Clinical Indication: Constipation Comparison: Acute abdominal series from 01/16/2012 FINDINGS: Multiple views of the abdomen show a nonobstructive bowel gas pattern. No intraperitoneal free air is seen. Degenerative changes of the lumbar spine are seen. IMPRESSION: Nonobstructive bowel gas pattern. SL: [id number] 03/28/2016 [facility] Consultation Notes No Data Provided for This Section Discharge Summaries No Data Provided for This Section History and Physicals No Data Provided for This Section Vital Signs Vital Sign Value Date Comments Source Respitory Rate 18 03/28/2016 [facility] Systolic (mm Hg) 125 03/28/2016 [facility] Diastolic (mm Hg) 44 03/28/2016 [facility] Temperature Oral (F) 99.1 F 03/28/2016 [facility] Heart Rate 92 03/28/2016 [facility] Heart Rate 62 03/28/2016 [facility] Heart Rate 97 03/28/2016 [facility] Respitory Rate 20 03/28/2016 [facility] Systolic (mm Hg) 127 03/28/2016 [facility] Diastolic (mm Hg) 51 03/28/2016 [facility] Systolic (mm Hg) 132 03/28/2016 [facility] Diastolic (mm Hg) 51 03/28/2016 [facility] Respitory Rate 20 03/28/2016 [facility] Height 152.4 cm 03/28/2016 [facility] BMI Calculated 21.14 03/28/2016 [facility] Temperature Oral (F) 97.6 F 03/28/2016 [facility] Weight 49.091 03/28/2016 [facility] Encounters Location Location Details Encounter Type Encounter Number Reason For Visit Attending Provider ADM Date DC Date Status Source Outpatient [id number] ONEL LOZANO 11/06/2015 Active [facility] [id number] Felipe BeasleySabra 03/28/2016 03/28/2016 [facility] [place] [facility] [id number] Onel Lozano 10/18/2016 10/19/2016 [facility] Smith Procedures Procedure Code Date Perfomer Comments Source Lower extremity surgical repair<sup>1</sup> [id number] 05/15/2015 [place] [facility] [place] - Above knee amputation [id number] ABIDA Smith, [place] Assessment and Plan No Data Provided for This Section Plan of Care No Data Provided for This Section Social History Social History Date Source Social History TypeResponse Alcohol Never Smoking Status Never smoker; Ready to change: No; Concerns about tobacco use in household: No; Exposure to Tobacco Smoke None; Cigarette Smoking Last 365 Days No; Reg Smoking Cessation Counseling No 11/06/2015 [facility] Smith Social History TypeResponse Alcohol Never Smoking Status Never smoker; Ready to change: No; Concerns about tobacco use in household: No; Exposure to Tobacco Smoke None; Cigarette Smoking Last 365 Days No; Reg Smoking Cessation Counseling No 11/06/2015 [facility] Family History No Data Provided for This Section Advance Directives No Data Provided for This Section Functional Status No Data Provided for This Section
--- OUTSIDE RECORDS SUMMARY | 2019-12-09 23:47 | XMS REPORT | Clinical Summary ---
Author Author YUSUF [facility]ineSaint [facility] Address Unknown Phone Unavailable Care Team Providers Care Research Assistant Professor Name Role Phone Natanael Lozano MD PCP Unavailable Raghu Jackson Unavailable Allergies No Known Allergies Medications End [...] CKD (chronic kidney disease), stage 3 (moderate) Hypothyroid 03/26/2014 GERD (gastroesophageal reflux disease) 03/26/2014 [...] Signs Not on file Plan of Treatment Not on file Implants Device Identifier Shelf Expiration Date Model / Serial / L ot Implanted Type Area Manufactur er 03/26/2019 [id number] / [id number] / Grft Eptfe-Heparin Rng [id number] Graft/Patc Right: Leg [employer] & [id number] - [id number] ASSC:MED Implanted: Qty: 1 on 03/08/2016 by Nicolasa Godfrey MD Explanted: 03/08/2016 [id number] / / [id number] Supera Peripheral Stent WESLEY Implanted: Qty: 1 on 05/27/2015 VASCULAR DEVICE 02/05/2017 [id number] / / [id number] Supera Peripheral Stent WESLEY Implanted: Qty: 1 on 05/27/2015 VASCULAR DEVICE Results Not on fileafter 12/08/2018 Insurance Payer Benefit Subscriber ID Type Phone Address Plan / Group [employer] - MEDICARE MGD CARE [employer] xxxxxxxx [phone] [address] [place] [address] HMO POS PPO [id number] Advance Directives Patient has advance care planning documents, and code status on file. For more i nformation, please contact: [facility] [address] [place] [address] Date Inactivated Comments Code Status [...]
--- OUTSIDE RECORDS SUMMARY | 2019-12-09 23:47 | XMS REPORT | Summary of Care ---
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 Maintenance Name Role Phone Natanael Lozano MD PCP Unavailable Reason for Visit * Reason Comments Cardiology Follow-up Encounter Details Care Team Description Date Type Department Jose Sky MD [address] [address] [phone] Cardiology Follow-up 01/29/2019 Office Visit [facility] [address] [place], [place] [id number] [place] [address] Allergies No Known Allergiesdocumented as of this encounter (statuses as of 01/31/2019) Medications End Date Status Medication Sig Dispensed Refills Start Date Active Multiple 0 Vitamins-Minerals (CENTRUM SILVER OR) Active Proventil Proair Ventolin 0 108 (90 base) mcg/act inhaler Active levothyroxine (SYNTHROID) Take 1 Tab by 0 100 MCG tablet mouth daily. Active fluticasone-salmeterol 0 (ADVAIR) 500-50 MCG/DOSE inhaler Active aspirin 81 MG tablet Take 1 Tab by 0 mouth daily. Active ondansetron (ZOFRAN) 8 mg Take 1 tablet 30 Tab 0 tablet by mouth 6 every 8 hours as needed for nausea Active Sitagliptin Phosphate Take by 0 (JANUVIA) 100 MG TABS mouth. Active zolpidem (AMBIEN) 5 MG Take 1 Tab by 30 Tab 0 0 tablet mouth nightly 7 as needed for Sleep. Active lidocaine (XYLOCAINE) 5 % Apply TID prn 1 Tube 0 ointment for pain 7 Active lisinopril (PRINIVIL, Take 1 Tab by 90 Tab 3 11 /17/201 ZESTRIL) 20 MG tablet mouth daily. 7 Active gabapentin (NEURONTIN) Take 1 Cap by 300 Cap 2 0 300 MG mouth four 8 capsuleIndications: times daily. Neuropathic Pain Indications: Neuropathic Pain Active carvedilol (COREG) 12.5 TAKE ONE 180 Tab 3 MG tablet TABLET BY 8 MOUTH TWICE A DAY Active hydrocodone-acetaminophen Take 1 Tab by 90 Tab 0 (NORCO) 10-325 MG per mouth every 6 9 tablet hours as needed for Pain. Active clopidogrel (PLAVIX) 75 TAKE ONE 30 Tab 0 MG tablet TABLET BY 9 MOUTH DAILY 01/29/2019 Discontinued pravastatin (PRAVACHOL) TAKE ONE 90 Tab 1 80 MG tablet TABLET BY 9 MOUTH EVERY EVENING documented as of this encounter (statuses as of 01/31/2019) Active Problems Problem Noted Date [facility] 11/27/2015 Carotid artery stenosis 05/05/2015 Hyperlipidemia 05/05/2015 Chronic renal insufficiency 05/05/2015 GERD (gastroesophageal reflux disease) 05/05/2015 Hypothyroidism 05/05/2015 Amputation of leg below knee, left, traumatic [facility] ) 05/05/2015 PVD (peripheral vascular disease) [facility] 5 Leukemia, lymphocytic, chronic [facility]) 05/05/2015 COPD (chronic obstructive pulmonary disease) [facility] 05/05/2015 Coronary atherosclerosis of koi coronary vessel 1 07/06/2014 Benign essential HTN 05/05/2015 Status post unilateral above knee amputation-left documented as of this encounter (statuses as of 01/31/2019) Immunizations Name Administration Dates Next Due Influenza (whole) 12/22/2015 Influenza Hd 01/12/2018 Zoster Recombinant 04/17/2018 documented as of this encounter Social History Date Tobacco Use Types Packs/Day Years Used Quit: 05/09/1982 Former Smoker Smokeless Tobacco: Never Used Drinks/Week oz/Week Comments Alcohol Use No Sex Assigned at Date Recorded Not on file Industry Job Start Date Occupation Not on file Not on file Not on file Travel End Travel History Travel Start No recent travel history available. documented as of this encounter Last Filed Vital Signs Reading Time Taken Comments Vital Sign 140/60 01/29/2019 3:10 PM CDT Blood Pressure 71 01/29/2019 2:56 PM CDT Pulse - - Temperature - - Respiratory Rate - - Oxygen Saturation - - Inhaled Oxygen Concentration 51.1 kg (112 lb 9.6 oz) 01/29/2019 2:56 PM CDT Weight 152.4 cm (5') 01/29/2019 2:56 PM CDT Height 21.99 01/29/2019 2:56 PM CDT Body Mass Index documented in this encounter Progress Notes * Jose Sky MD - 01/29/2019 4:00 PM CDT Jose Sky MD Office HP/Followup Today's Date: 01/29/2019 5:20 PM Alison Cruz is a 83 y.o. female patient. Date of : 1935 Referring MD: Erwin Seals MD [facility]: Address: [address] [place] [address] [facility]- Estimated body mass index is 21.99 kg/m as calculated from the following: Height as of this encounter: 5' (1.524 m). Weight as of this encounter: 112 lb 9.6 oz (51.1 kg). Body surface area is 1.47 meters squared. Present HPI: 01/29/19 SInce Last Visit the following is noted: Remains well asx OPV 12/26/17 SInce Last Visit the following is noted: Feels well Denies RSCP or SOB leg still with cramps, treated with po pickle juice at [facility] LMDs Loves the [employer] OPV 03/24/17 SInce Last Visit the following is noted: 03/08/16- rt Fem-pop above the knee with proshtetic material by Dr Walker elev ated today Beau-horse right calf Denies RSCP/SOB OPV 05/27/15 Via popliteal approach I stented almost the entire RSFA in a 4 mm vessel I could not access the LCFA despite ultrasound OPV 03/21/14 CTA showed horrific disease of the RSFA OPV: 10/2/14 80 year old female with unfortunate history of CAD, HTN, GERD, COPD, CKD, hypoth yroidsm, PVD and CLL which caused acute left leg thrombus. 2011 in OSH she underwent thrombectomy, LSFA stent, L fem-tib bypass with fascio colin for compartment syndrome. I saw her intially in the ER after she was transf erred from OSH with return of ischemic left limb with popliteal clot. It was fou nd to be too late for limb salvage and she underwent L BKA. She also has R SFA s enosis and cath proven CAD mainly RCA ostium In 2011 she underwent left stump block injection for pain control with steroid Currently: She reports intermittent severe RLE cramp like pains from the calf that radiate up the leg. Over the last 3 weeks her pain progressed and at night she gets tow numbness. This prompted LE duplex scan on 02/18/16 showing high grade stenosis a t the proximal RSFA stent and JAKOB 0.46. She also has baseline pains in the thigh that she believes are statin related. S he reports since increasing her statin dosage from 20 to 80 no significant randhawa e in symptoms. Per our documentation, she had a statin free interval with pain a s well. She denies chest pain, dyspnea, orthopnea, PND. 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 and VSCT TTE- DATE: 02/11/14 LVEF 60% Regadenosine MIBI - DATE: 02/24/14 12/26/17 Negative htperdynamic EDWARD DOPPLERs- known Right PT occlusion EDWARD-DATE 05/15/15 08/21/15 06/16/16 03/18/17 06/15/17 09/27/17 12/26/17 07/05/18 01/29/19 Right 0.59/0.54/ 78 0.81/0.78 /102 0.88/0.90/ 104 0.86/0.88/ 98 0.87/0.88/ 95 0.87/0.86 /94 0.87/0.86 /93 0.93/0.63/ 153/96 1.03/1.11 166/179 Prox UFQ=[id number] Left Amp Amp Amp Amp Amp Amp Amp Amp AKA CAROTID DOPPLERs DATES: VISUAL DISPLAY ASSOCIATE-DATE 02/21/14 11/24/15 12/17/16 12/26/17/9 Right 117/34 107/33 106/34 107/32 66/17 Left 112/32 112/34 109/34 108/31 66/15 Allergies: No Known Allergies Past Medical History Past Medical History: Diagnosis Date Amputation of leg below knee, left, traumatic [facility] 05/05/2015 Benign essential HTN 05/05/2015 Carotid artery stenosis 05/05/2015 Chronic renal insufficiency 05/05/2015 COPD (chronic obstructive pulmonary disease) [facility]) 05/05/2015 Coronary atherosclerosis of koi coronary vessel 05/05/2015 [place] GERD (gastroesophageal reflux disease) 05/05/2015 Hyperlipidemia 05/05/2015 Hypothyroidism 05/05/2015 Leukemia, lymphocytic, chronic [facility]) 05/05/2015 PVD (peripheral vascular disease) [place] 05/05/2015 Status post unilateral above knee amputation-left 03/01/2012 Surgical History: Past Surgical History: Procedure Laterality Date HX LEG BYPASS HX NEUROMA SURGERY HX TUBAL LIGATION Social History: Social History Socioeconomic History Marital status: Spouse name: Not on file Number of children: Not on file Years of education: Not on file Highest education level: Not on file Occupational History Not on file Social Needs Financial resource strain: Not on file Food insecurity: Worry: Not on file Inability: Not on file Transportation needs: Medical: Not on file Non-medical: Not on file Tobacco Use Smoking status: Former Smoker Quit date: 05/09/1982 Years since quittin.7 Smokeless tobacco: Never Used Substance and Sexual Activity Alcohol use: No Drug use: No Sexual activity: Not on file Lifestyle Physical activity: Days per week: Not on file Minutes per session: Not on file Stress: Not on file Relationships Social connections: Talks on phone: Not on file Gets together: Not on file Attends mandaeism service: Not on file Active member of club or organization: Not on file Attends meetings of clubs or organizations: Not on file Relationship status: Not on file Intimate partner violence: Fear of current or ex partner: Not on file Emotionally abused: Not on file Physically abused: Not on file Forced sexual activity: Not on file Other Topics Concerns: Not on file Social History Narrative Not on file Family History: Family History Problem Relation Name Age of Onset CVA/Stroke Mother Diabetes Brother Hypertension Son Medications: aspirin 81 MG tablet Take 1 Tab by mouth daily. carvedilol (COREG) 12.5 MG tablet TAKE ONE TABLET BY MOUTH TWICE A DAY clopidogrel (PLAVIX) 75 MG tablet TAKE ONE TABLET BY MOUTH DAILY fluticasone-salmeterol (ADVAIR) 500-50 MCG/DOSE inhaler gabapentin (NEURONTIN) 300 MG capsule Take 1 Cap by mouth four times daily. Indications: Neuropathic Pain hydrocodone-acetaminophen (NORCO) 10-325 MG per tablet Take 1 Tab by mouth e very 6 hours as needed for Pain. levothyroxine (SYNTHROID) 100 MCG tablet Take 1 Tab by mouth daily. lidocaine (XYLOCAINE) 5 % ointment Apply TID prn for pain lisinopril (PRINIVIL, ZESTRIL) 20 MG tablet Take 1 Tab by mouth daily. Multiple Vitamins-Minerals (CENTRUM SILVER OR) ondansetron (ZOFRAN) 8 mg tablet Take 1 tablet by mouth every 8 hours as nee ded for nausea pravastatin (PRAVACHOL) 80 MG tablet TAKE ONE TABLET BY MOUTH EVERY EVENING Proventil Proair Ventolin 108 (90 base) mcg/act inhaler Sitagliptin Phosphate (JANUVIA) 100 MG TABS Take by mouth. zolpidem (AMBIEN) 5 MG tablet Take 1 Tab by mouth nightly as needed for Slee p. 12 Point ROS: all others are negative I have reviewed: ALLERGIES, PMH, PSH, SOC HX FHX,MEDS, 12 PT- ROS, As well as having updated the computerized patient record appropriately . LAB RESULTS: DATE TC: HDL: LDL: TG: H/H/Plate/MCV: BUN/Cr/EGFR/K: Glucose/HbA1C: Physical Exam HG CARDI VITALS 01/29/2019 01/29/2019 Height 5' 0" - Weight 112 lb 9.6 oz - BP 146/52 140/60 BP Location right arm left arm Patient Position Sitting Sitting Pulse 71 - BSA (Calculated - sq m) - - BMI (Calculated) - - Some recent data might be hidden General Appearance: Alert, cooperative, no distress, appears stated age Head: Normocephalic, without obvious abnormality, atraumatic Eyes: PERRL, conjunctiva/corneas clear, EOM's intact, fundi Ears: Normal TM's and external ear canals, both ears Nose: Nares normal, septum midline, mucosa normal, no drainage or sinus ten derness Throat: Lips, mucosa, and tongue normal; teeth and gums normal Neck: Supple, symmetrical, trachea midline, no adenopathy; thyroid: No enlargement/tenderness/nodules; no JVD Possible bruit heard on ausculatation Back: Symmetric, no curvature, ROM normal, no CVA tenderness Lungs: Clear to auscultation bilaterally, respirations unlabored Chest wall: No tenderness or deformity Heart: Regular rate and rhythm, S1 S2 Murmur: none Abdomen: Soft, non-tender, bowel sounds active all four quadrants, no masses, no organomegaly Extremities: Right; Extremities normal, atraumatic, no cyanosis or edema Skin: Skin color, texture, turgor normal, no rashes or lesions Neurologic: CNII-XII intact. Normal strength, sensation and reflexes throughout Vascular Physical Examination 1 Rt RADIAL Lt 1 Rt---------BRACHIAL---------Lt Rt------SUBCLAVIAN-------LT Bruit ++ 1 Rt CAROTID Lt Bruit ++ 1 ABDOMINAL Bruit ++ 2 Bruit++ Rt FEMORAL Lt NE 0 Rt POPLITEAL Lt x 1 Rt-----DORSALIS PEDIS----Lt x 0 Rt--------POST TIBIAL-------Lt x EKG today:01/29/2019 DECISION MAKING PLANS for PROBLEMS- Patient Active Problem List Diagnosis Status post unilateral above knee amputation-left Carotid artery stenosis Hyperlipidemia Chronic renal insufficiency GERD (gastroesophageal reflux disease) Hypothyroidism Amputation of leg below knee, left, traumatic ([facility]) PVD (peripheral vascular disease) ([facility]) Leukemia, lymphocytic, chronic ([facility]) COPD (chronic obstructive pulmonary disease) ([facility]) Coronary atherosclerosis of koi coronary vessel Benign essential HTN Phantom limb syndrome with pain ([facility]) TODAY'S PLAN-all old records reviewed today 1-Fax appropriate records to LMD and Referring Physicians 2- no changes made 3-Biyearly EDWARD Sky MD FAC FACP [facility] Jose Sky MD FAC FACP [facility] Clinical Professor [facility] [employer] Worker of PVD Services at [facility] Chief of Peripheral Vascular Medicine at [address] [place] [address] [email or web address] Office documented in this encounter Plan of Treatment Care Team Description Date Type Specialty 04/25/2019 Ancillary Cardiology Procedure Health Maintenance Due Date Last Done Comments MEDICARE AWV 1935 OSTEOPOROSIS SCREENING 2001 PREVNAR >= 65 (PCV13) 2001 FLU VACCINE > 6 MONTHS 12/07/2018 01/12/2018, , 12/22/2015 FALL SCREEN 10/20/2019 10/19/2018 TETANUS SHOT (ADULT) 01/05/2026 01/06/2016 PNEUMOVAX >=65 (PPSV23) Completed 02/08/2016, , 01/18/2012 documented as of this encounter Procedures Comments Procedure Name Priority Date/Time Associated Diag nosis ELECTROCARDIOGRAM Routine 01/29/2019 Stenosis of carotid COMPLETE 5:20 PM CDT artery, unspecified laterality documented in this encounter Results * ELECTROCARDIOGRAM COMPLETE (01/29/2019 5:20 PM CDT) Narrative Performed At This result has an attachment that is n ot available. Result approved by Jose Sky M D on 01/29/19 documented in this encounter Visit Diagnoses Diagnosis PVD (peripheral vascular disease) ([facility]) - Primary Peripheral vascular disease, unspecifie d Stenosis of carotid artery, unspecified laterality documented in this encounter
[2019-12-10] MEDS ORDERED: CLONIDINE HCL 0.1 MG TAB PO ONE
[2019-12-10 00:10] VITALS: BP 174/81
[2019-12-10] MEDS ORDERED: CLONIDINE HCL 0.1 MG TAB ONE (00:12)
--- NOTE | 2019-12-10 00:41 | Emergency Department Note ---
History of Present Illnes History of Present Illness Chief Complaint: Hypertension History of Present Illness This is a 84 year old female who presents with the cc of > BP. States started checking BP 3 days ago due to headache. Does not recall last time checked BP before 3 days ago. Called MD on Tuesday who had her increase her 20mg QD lisinopril to 20 mg BID. No headache now. No numbness, tingling, weakness, slurred speech, vision problems. Has chronic pain from phantom limb (AKA several years ago due to "blood clot"). Takes hydrocodone sparingly due to concern for constipation and addiction. Took hydrocodone just at arrival and pain is improving. Historian: Patient Arrival Mode: Car Coroner Required: No Onset (how long ago): day(s) Location: no pain Severity: unable to specify Duration (how long): day(s) Progression: waxing and waning Chronicity: chronic Context: Reports recent immobilization (Wheelchair bound due to AKA), Reports new medications (> lisinopril does per above); Denies recent illness, Denies recent surgery, Denies trauma/injury Exacerbating factors: other (pain) Associated symptoms: Denies confusion, Denies chest pain, Denies cough, Denies diaphoresis, Denies fever/chills, Denies headaches, Denies loss of appetite, Denies malaise, Denies nausea/vomiting, Denies rash, Denies shortness of breath, Denies syncope, Denies weakness Past Medical/Family History Physician Review I have reviewed the patient's past medical and family history. Any updates have been documented here. Past Medical History Recent Fever: No Clinical Suspicion of Infectio: No New/Unexplained Change in Ment: No Past Medical History: Hypertension, Diabetes, COPD, Asthma, DVT/PE Other Medical History: EMPHYSEMA CHRONIC LYMPHOCYTIV LEUKEMIA PVD Past Surgical History: T&A Other Surgery: ABOVE KNEE AMPUTATION OF LEFT LEG LEG STENTS Social History Smoking Cessation: Former smoker Counseling Performed: No Alcohol Use: None Any Illegal Drug Use: No Physically hurt or threatened: No Other Last Tetanus: UNKNOWN Any Pre-Existing Lines (PICC,: No Review of Systems Review of Systems Constitutional: Reports no symptoms EENTM: Reports no symptoms Cardiovascular: Reports no symptoms Respiratory: Reports no symptoms; Denies as per HPI, Denies change in phlegm color, Denies chest congestion, Denies cough, Denies hemoptysis, Denies excessive phlegm production, Denies pain on inspiration, Denies pain with cough, Denies dyspnea, Denies dyspnea on exertion, Denies snoring, Denies stridor, Denies wheezing, Denies other Musculoskeletal: Reports other (left AKA) Integumentary: Reports no symptoms Neurological: Reports no symptoms Psychological: Reports no symptoms Review of other systems: All other systems negative Physical Exam Related Data Allergies: Coded Allergies: No Known Allergies (Unverified , 12/09/19) Triage Vital Signs Vital Signs Date Time Temp Pulse Resp B/P (MAP) Pulse Ox O2 Delivery O2 Flow Rate FiO2 12/09/19 22:35 98.7 79 18 215/92 95 Room Air Physical Exam CONSTITUTIONAL Constitutional: Present well-developed, Present well-nourished HENT HENT: Present normocephalic, Present atraumatic, Present oropharynx clear/moist, Present nose normal EYES NECK Neck: Present ROM normal PULMONARY Pulmonary: Present effort normal, Present breath sounds normal CARDIOVASCULAR Cardiovascular: Present regular rhythm, Present heart sounds normal, Present capillary refill normal, Present normal rate GASTROINTESTINAL Abdominal: Present soft, Present nontender, Present bowel sounds normal GENITOURINARY SKIN Skin: Present warm, Present dry MUSCULOSKELETAL Musculoskeletal: Present other (AKA) NEUROLOGICAL Neurological: Present alert, Present oriented x 3, Present DTRs normal, Present no gross motor or sensory deficits; Absent cranial nerve deficit, Absent sensory deficit, Absent abnormal DTRs, Absent abnormal gait PSYCHOLOGICAL Psychological: Present mood/affect normal Assessment & Plan Medical Decision Making MDM Ordered clonidine. BP check 174/81 before administration. Clonidine held due to BP improvement. Patient took home dose of hydrocodone just at arrival to ED which has greatly improved her chronic pain. Patient remained asymptomatic during ED visit. Encouraged patient to take hydrocodone when needed and spoke about developing bowel program to prevent constipation. Patient also to see PCP tomorrow for BP regimen. Gave prompt follow-up for return. Assessment & Plan Final Impression: (1) High blood pressure (2) Hypertension Depart Disposition: HOME, SELF-CARE Last Vital Signs Date Time Temp Pulse Resp B/P (MAP) Pulse Ox O2 Delivery O2 Flow Rate FiO2 12/10/19 00:10 71 16 97 12/09/19 22:35 98.7 215/92 Room Air Medications in the ED Clonidine HCl 0.1 mg ONCE ONCE PO ; Start 12/10/19 at 00:00; Stop 12/10/19 at 00:01; Status UNV NOAH STODDARD MD Dec 10, 2019 00:17
== END 2019-12-10 00:15 | disposition home or self-care (01) ==
LOC: FSED 22:00
DX: I10 Essential (primary) hypertension (principal); G54.6 Phantom limb syndrome with pain; E11.9 Type 2 diabetes mellitus without complications; J44.9 Chronic obstructive pulmonary disease, unspecified; Z85.6 Personal history of leukemia; Z86.718 Personal history of other venous thrombosis and embolism
CPT/HCPCS: 99282

== ENCOUNTER 2021-02-20 14:39 | Emergency (ER) | payer MEDICARE ==
[~2021-02-20] VITALS: Ht 152.4 cm; Wt 51.7 kg
[2021-02-20] MEDS ORDERED: SODIUM CHLORIDE 0.9% 1000ML 1,000 ML IV STA (15:20)
[2021-02-20] MEDS ORDERED: SODIUM CHLORIDE 0.9% 1000ML 1,000 ML ONE (16:13)
[2021-02-20 17:18] VITALS: BP 134/61
[2021-02-20] MEDS ORDERED: PREDNISONE20 MG PO (17:21)
[2021-02-20] MEDS ORDERED: VENTOLIN HFA18 GM INH (17:21)
[2021-02-20] MEDS ORDERED: AZITHROMYCIN250 MG PO (17:21)
== END 2021-02-20 17:27 | disposition home or self-care (01) ==
LOC: FSED 14:45
DX: R53.1 Weakness (principal); J12.9 Viral pneumonia, unspecified; D72.829 Elevated white blood cell count, unspecified; E11.65 Type 2 diabetes mellitus with hyperglycemia; I10 Essential (primary) hypertension; J44.9 Chronic obstructive pulmonary disease, unspecified; J45.909 Unspecified asthma, uncomplicated; Z86.718 Personal history of other venous thrombosis and embolism; Z85.6 Personal history of leukemia; Z89.612 Acquired absence of left leg above knee
CPT/HCPCS: 71046; 99284; J7030

== ENCOUNTER 2021-05-28 13:02 | Emergency (ER) | payer MEDICARE ==
[~2021-05-28] VITALS: Ht 152.4 cm; Wt 52.2 kg
[~2021-05-28 13:02] MED LIST: AZITHROMYCIN250 MG PO; PREDNISONE20 MG PO; VENTOLIN HFA18 GM INH
[2021-05-28] MEDS ORDERED: ONDANSETRON HCL INJ 2MG/ML 2ML 2 MG/ML VIAL IV STA (15:19)
[2021-05-28] MEDS ORDERED: FAMOTIDINE 20 MG/2 ML VIAL IV STA (15:19)
[2021-05-28] MEDS ORDERED: SODIUM CHLORIDE 0.9% 1000ML 1,000 ML IV SCH (15:30)
[2021-05-28] MEDS ORDERED: FAMOTIDINE 20 MG/2 ML VIAL IV ONE (15:43)
[2021-05-28] MEDS ORDERED: POTASSIUM CHLORIDE 20 MEQ TAB CR PO STA (15:46)
[2021-05-28] MEDS ORDERED: KCL 20MEQ/.9 SOD CHL 1,000 ML IV SCH (16:00)
[2021-05-28] MEDS ORDERED: ONDANSETRON ODT4 MG PO (17:20)
== END 2021-05-28 17:48 | disposition home or self-care (01) ==
LOC: FSED 14:02
DX: U07.1 COVID-19 (principal); R05.9 Cough, unspecified; R50.9 Fever, unspecified; R11.0 Nausea; E11.65 Type 2 diabetes mellitus with hyperglycemia; R19.7 Diarrhea, unspecified; E03.9 Hypothyroidism, unspecified
CPT/HCPCS: 71046; 80053; 81003; 85025; 96374; 96375; 99284; J2405; J7030; U0002

== ENCOUNTER → 2021-06-30 | Outpatient (CLI) | payer MEDICARE ==
[~2021-06-30] MED LIST changes: +ONDANSETRON ODT4 MG PO
== END ==
LOC: RAD 12:35
PROVIDERS: ATTEND Internal Medicine
DX: J96.01 Acute respiratory failure with hypoxia (principal); U07.1 COVID-19; J12.82 Pneumonia due to coronavirus disease 2019; J44.9 Chronic obstructive pulmonary disease, unspecified; R93.89 Abnormal findings on diagnostic imaging of other specified body structures; Z09 Encounter for follow-up examination after completed treatment for conditions other than malignant neoplasm
CPT/HCPCS: 71046

== ENCOUNTER 2021-09-18 14:03 | Emergency (ER) | payer MEDICARE, OTHER ==
[~2021-09-18] VITALS: Ht 152.4 cm; Wt 51.3 kg
[2021-09-18] MEDS ORDERED: TETANUS/DIPHTHERIA TOX ADULT 0.5 ML SYR IM STA (14:31)
[2021-09-18] MEDS ORDERED: DOXYCYCLINE HY100 MG PO (14:39)
[2021-09-18] MEDS ORDERED: TETANUS/DIPHTHERIA TOX ADULT 0.5 ML SYR ONE (14:42)
[2021-09-18] MEDS ORDERED: MUPIROCIN 2% OINT 22 GM TUBE TOP ONE (14:45)
[2021-09-18] MEDS ORDERED: CLONIDINE HCL0.1 MG PO (15:14)
[2021-09-18] MEDS ORDERED: STOOL SOFTENER1 EAC2 (15:14)
[2021-09-18] MEDS ORDERED: CALCIUM ACETAT667 MG PO (15:14)
[2021-09-18] MEDS ORDERED: HYDROCODON-ACE1 EAC9 (15:14)
[2021-09-18] MEDS ORDERED: PREDNISONE5 MG PO (15:14)
[2021-09-18] MEDS ORDERED: VITAMIN D325 MCG (15:14)
[2021-09-18] MEDS ORDERED: ACIDOPHILUS1 EAC1 PO (15:14)
[2021-09-18] MEDS ORDERED: JANUVIA100 MG PO (15:14)
[2021-09-18] MEDS ORDERED: ADVAIR 250-501 EACH INH (15:14)
[2021-09-18] MEDS ORDERED: ELIQUIS2.5 MG PO (15:14)
[2021-09-18] MEDS ORDERED: ASPIRIN EC81 MG PO (15:14)
[2021-09-18] MEDS ORDERED: NEURONTIN300 MG PO (15:14)
[2021-09-18] MEDS ORDERED: LEVOTHYROXINE88 MCG PO (15:14)
[2021-09-18] MEDS ORDERED: PRAVASTATIN SOD80 MG (15:14)
[2021-09-18] MEDS ORDERED: FIBER TABS625 MG PO (15:14)
[2021-09-18] MEDS ORDERED: AMLODIPINE BESYL5 MG PO (15:14)
[2021-09-18] MEDS ORDERED: LISINOPRIL10 MG PO (15:14)
[2021-09-18] MEDS ORDERED: CARVEDILOL12.5 MG PO (15:14)
== END 2021-09-18 14:46 | disposition home or self-care (01) ==
LOC: FSED 14:35
DX: S81.811A Laceration without foreign body, right lower leg, initial encounter (principal); W22.09XA Striking against other stationary object, initial encounter; Y92.89 Other specified places as the place of occurrence of the external cause; I10 Essential (primary) hypertension; E11.9 Type 2 diabetes mellitus without complications; J44.9 Chronic obstructive pulmonary disease, unspecified; E03.9 Hypothyroidism, unspecified; Z85.6 Personal history of leukemia
CPT/HCPCS: 90471; 90714; 96372; 99283

== ENCOUNTER 2021-09-24 16:55 | Emergency (ER) | payer MEDICARE ==
[~2021-09-24] VITALS: Ht 152.4 cm; Wt 51.3 kg
[~2021-09-24 16:55] MED LIST changes: +ACIDOPHILUS1 EAC1 PO; +ADVAIR 250-501 EACH INH; +AMLODIPINE BESYL5 MG PO; +ASPIRIN EC81 MG PO; +CALCIUM ACETAT667 MG PO; +CARVEDILOL12.5 MG PO; +CLONIDINE HCL0.1 MG PO; +DOXYCYCLINE HY100 MG PO; +ELIQUIS2.5 MG PO; +FIBER TABS625 MG PO; +HYDROCODON-ACE1 EAC9; +JANUVIA100 MG PO; +LEVOTHYROXINE88 MCG PO; +LISINOPRIL10 MG PO; +NEURONTIN300 MG PO; +PRAVASTATIN SOD80 MG; +PREDNISONE5 MG PO; +STOOL SOFTENER1 EAC2; +VITAMIN D325 MCG
[2021-09-24] MEDS ORDERED: CEPHALEXIN MONOHYDRATE 250 MG CAP PO STA (17:32)
[2021-09-24] MEDS ORDERED: ONDANSETRON HCL 4 MG ORAL DISINTEGRATING TAB PO STA (17:33)
[2021-09-24] MEDS ORDERED: ONDANSETRON HCL 4 MG ORAL DISINTEGRATING TAB ONE (17:53)
[2021-09-24] MEDS ORDERED: CEPHALEXIN MONOHYDRATE 250 MG CAP ONE (17:54)
[2021-09-24] MEDS ORDERED: ONDANSETRON ODT4 MG PO (17:59)
[2021-09-24] MEDS ORDERED: CEPHALEXIN500 MG PO (17:59)
== END 2021-09-24 18:14 | disposition home or self-care (01) ==
LOC: FSED 17:02
DX: Z48.01 Encounter for change or removal of surgical wound dressing (principal)
CPT/HCPCS: 99283; Q0162

== ENCOUNTER → 2022-03-24 | Outpatient (CLI) | payer MEDICARE ==
[~2022-03-24] MED LIST changes: +CEPHALEXIN500 MG PO
== END ==
LOC: CT 11:52
PROVIDERS: ATTEND Internal Medicine
DX: R05.9 Cough, unspecified (principal); J98.01 Acute bronchospasm
CPT/HCPCS: 71250

== ENCOUNTER 2023-11-28 15:09 | Emergency (ER) | payer MEDICARE ==
[~2023-11-28] VITALS: Ht 152.4 cm; Wt 52.6 kg
[2023-11-28] MEDS: SODIUM CHLORIDE 0.9% 1000ML 1,000 ML IV ONE (17:23)
[2023-11-28] MEDS ORDERED: IOPAMIDOL 370 MG/ML 100 ML INFUS..BTL INJ ONE (18:35)
[2023-11-28] MEDS ORDERED: LOMOTIL TABLET1 EACH PO (20:05)
[2023-11-28 20:06] VITALS: PULSE 80; RESP 18; TEMP 97.1; O2SAT 92
== END 2023-11-28 20:26 | disposition home or self-care (01) ==
LOC: FSED 15:22
DX: R19.7 Diarrhea, unspecified (principal); R91.8 Other nonspecific abnormal finding of lung field; I10 Essential (primary) hypertension; E11.9 Type 2 diabetes mellitus without complications; I73.9 Peripheral vascular disease, unspecified; J44.9 Chronic obstructive pulmonary disease, unspecified; E03.9 Hypothyroidism, unspecified; J45.909 Unspecified asthma, uncomplicated; M10.9 Gout, unspecified; Z89.612 Acquired absence of left leg above knee; Z85.828 Personal history of other malignant neoplasm of skin
CPT/HCPCS: 71260; 74177; 80076; 81003; 85025; 99284; J7030; Q9967